=== PATIENT | female | born 1950 | race Two or more races ===

== ENCOUNTER 2024-06-26 11:00 | Emergency (ER) | payer MEDICARE, MEDICAID ==
[~2024-06-26] VITALS: Ht 165.1 cm; Wt 72.0 kg
[2024-06-26 12:26] LABS: Basophils # (auto) 0.1 10 ^3/uL (0-0.2); Basophils % (auto) 0.9 % (0.0-2.0); Eosinophils # (auto) 0.1 10 ^3/uL (0-0.8); Eosinophils % (auto) 0.9 % (0.0-7.0); Hematocrit 41.2 % (36.0-46.0); Hemoglobin 13.4 g/dL (12.2-16.2); Lymphocytes # (auto) 1.6 10 ^3/uL (0.4-5.4); Lymphocytes % (auto) 15.5 % (10.0-50.0); Mean Corpuscular Hemoglobin 30.2 pg (28.0-32.0); Mean Corpuscular Hgb Conc. 32.6 g/dL (32.0-36.0); Mean Corpuscular Volume 92.5 fL (80.0-100.0); Monocytes # (auto) 0.5 10 ^3/uL (0-1.3); Monocytes % (auto) 4.7 % (0.0-12.0); Neutrophils # (auto) 8.2 10 ^3/uL (1.6-8.6); Nucleated Red Blood Cells % 0.1 %; Platelet Count (auto) 364 10^3/uL (140-450); Red Blood Cells 4.45 10^6/uL (4.0-5.20); Red Cell Distribution Width 14.4 % (11.8-14.3); White Blood Cell 10.5 10^3/uL (4.4-10.8)
[2024-06-26 12:42] LABS: Albumin 3.9 g/dL (3.2-4.8); Alkaline Phosphatase 94 U/L (46-116); Anion Gap 10 (5-15); Aspartate Aminotransferase 18 U/L (13-40); BUN/Creatinine Ratio 18.5 (10.0-20.0); Bilirubin, Total 0.4 mg/dL (0.2-1.0); Calcium 9.9 mg/dL (8.7-10.4); Carbon Dioxide 23 mmol/L (20-31); Glucose 79 mg/dL (74-106); Sodium 145 mmol/L (136-145); Total Protein 6.8 g/dL (5.7-8.2)
[2024-06-26 12:47] LABS: Alanine Aminotransferase < 9 U/L (7-40); Blood Urea Nitrogen 23 mg/dL (9-23); Chloride 112 mmol/L (98-107)
--- NOTE | 2024-06-26 12:55 | DVH ---
EXAM: XY CHEST PORTABLE Indication: Pain Technique: Single frontal view of the chest was obtained Comparison: None FINDINGS: Lines and Tubes: None Lungs: No focal consolidation. Pleura: No effusion. No pneumothorax. Cardiomediastinal contours: Unremarkable Bones: No acute osseous abnormality. IMPRESSION: No acute cardiopulmonary disease.
--- NOTE | 2024-06-26 17:29 | ED.PDOC ---
History of Present Illness HPI Comments 73-year-old female brought in by EMS from [facility] for evaluation of reported chest pain. Per EMS, facility staff stated to them the patient had complained of chest pain. On arrival to the ER, the patient states she has not had chest pain. She denies shortness of breath, nausea, vomiting or other symptoms aside from lower back pain. Patient states her lower back pain started due to positioning in the gurney. No other symptoms are reported. Chief Complaint: Medical Clearance Time Seen by MD: 11:49 Allergies: Coded Allergies: NO KNOWN ALLERGIES (Unverified , 06/26/24) Mode of Arrival: EMS Past Medical History PAST MEDICAL HISTORY: CVA, Dementia, HTN Surgical History: Unknown [employer] History: Unknown Family History Family History: Unknown Social History Smoker: Non-Smoker Alcohol: Denies ETOH Use Drugs: Denies Drug Use Lives In: Prison All Other Systems: Reviewed and Negative (Comprehensive systems review obtained and negative except for what is stated in the HPI.) Physical Exam General Appearance: No Apparent Distress HEENT: PERRL/EOMI Neck: Full Range of Motion, Normal Inspection Respiratory: Chest Non-Tender, Lungs Clear, No Accessory Muscle Use, No Respiratory Distress, Normal Breath Sounds Cardiovascular: No Edema, No JVD, Regular Rate/Rhythm Breast Exam: Deferred Gastrointestinal: Non Tender, Soft Genitalia: Deferred Pelvic: Deferred Rectal: Deferred Extremities: Normal inspection, Normal range of motion, Non-tender, No pedal edema, Other (No midline or paraspinal back tenderness to palpation) Neurologic: Alert (Oriented times 1 (baseline per EMS report)), Normal Affect, Normal Mood, Other Cerebellar Function: NOT DONE Reflexes: NOT DONE Skin: Dry, Normal Color, Warm Lymphatic: NOT DONE Was a procedure done? Was a procedure done?: No EKG EKG : Comments Sinus rhythm, rate 79, normal intervals, normal axis, normal QRS, nonspecific T changes. Differential Dx Considerations may include: ACS, CT, chest wall pain, angina, GI etiology, infection such as bronchitis or pneumonia, among others X-Ray, Labs, Meds, VS Vital Signs Date Time Temp Pulse Resp B/P (MAP) Pulse Ox O2 Delivery O2 Flow Rate FiO2 06/26/24 20:55 98.0 98 16 156/74 (101) 97 98.0 06/26/24 20:46 188/97 06/26/24 20:22 74 17 97 Room Air* 0 21 06/26/24 20:02 184/103 06/26/24 19:30 98.0 74 13 180/103 (128) 97 98.0 06/26/24 19:06 98.3 76 14 174/72 (106) 95 98.3 06/26/24 17:32 79 06/26/24 12:23 98.1 78 16 165/90 (115) 95 98.1 06/26/24 12:23 78 16 95 Room Air 06/26/24 11:11 98.1 76 18 179/92 (121) 97 Lab Test 06/26/24 13:20 06/26/24 12:14 Range/Units Troponin I High Sensitivity 19 20 </=34 ng/L White Blood Count 10.5 4.4-10.8 10^3/uL Red Blood Count 4.45 4.0-5.20 10^6/uL Hemoglobin 13.4 12.2-16.2 g/dL Hematocrit 41.2 36.0-46.0 % Mean Corpuscular Volume 92.5 80.0-100.0 fL Mean Corpuscular Hemoglobin 30.2 28.0-32.0 pg Mean Corpuscular Hemoglobin Concent 32.6 32.0-36.0 g/dL Red Cell Distribution Width 14.4 H 11.8-14.3 % Platelet Count 364 140-450 10^3/uL Mean Platelet Volume 7.9 6.9-10.8 fL Neutrophils (%) (Auto) 78.0 37.0-80.0 % Lymphocytes (%) (Auto) 15.5 10.0-50.0 % Monocytes (%) (Auto) 4.7 0.0-12.0 % Eosinophils (%) (Auto) 0.9 0.0-7.0 % Basophils (%) (Auto) 0.9 0.0-2.0 % Neutrophils # (Auto) 8.2 1.6-8.6 10 ^3/uL Lymphocytes # (Auto) 1.6 0.4-5.4 10 ^3/uL Monocytes # (Auto) 0.5 0-1.3 10 ^3/uL Eosinophils # (Auto) 0.1 0-0.8 10 ^3/uL Basophils # (Auto) 0.1 0-0.2 10 ^3/uL Nucleated Red Blood Cells 0.1 % Sodium Level 145 136-145 mmol/L Potassium Level 4.0 3.5-5.1 mmol/L Chloride Level 112 H 98-107 mmol/L Carbon Dioxide Level 23 20-31 mmol/L Anion Gap 10 5-15 Blood Urea Nitrogen 23 9-23 mg/dL Creatinine 1.24 H 0.550-1.02 mg/dL Glomerular Filtration Rate Calc 46 >90 mL/min BUN/Creatinine Ratio 18.5 10.0-20.0 Serum Glucose 79 74-106 mg/dL Calcium Level 9.9 8.7-10.4 mg/dL Total Bilirubin 0.4 0.2-1.0 mg/dL Aspartate Amino Transferase (AST) 18 13-40 U/L Alanine Aminotransferase (ALT) < 9 7-40 U/L Alkaline Phosphatase 94 46-116 U/L B-Type Natriuretic Peptide 126.84 0-100 pg/mL Total Protein 6.8 5.7-8.2 g/dL Albumin 3.9 3.2-4.8 g/dL Current Medications Medications (Trade) Dose Ordered Sig/Bayron Route Start Time Stop Time Status Last Admin Hydralazine HCl (Apresoline Tablet) 10 mg ONCE ONCE PO 06/26/24 19:45 06/26/24 19:46 DC 06/26/24 20:02 Enalapril Maleate (Vasotec Tablet) 2.5 mg ONCE ONCE PO 06/26/24 20:45 06/26/24 20:46 DC 06/26/24 20:46 PROCEDURE(s): CXRP - CHEST PORTABLE REASON: med clearance ORDER NUMBER(s): [id number], ACCESSION NUMBER(s): [id number] EXAM: XY CHEST PORTABLE Indication: Pain Technique: Single frontal view of the chest was obtained Comparison: None FINDINGS: Lines and Tubes: None Lungs: No focal consolidation. Pleura: No effusion. No pneumothorax. Cardiomediastinal contours: Unremarkable Bones: No acute osseous abnormality. IMPRESSION: No acute cardiopulmonary disease. X-Ray, Labs, Meds, VS Comment 73-year-old female with a history of dementia brought in by EMS from [facility] [place] [facility] for evaluation of reported chest pain. On arrival to the ED, the patient denies any chest pain, shortness a breath or other symptoms aside from low back pain from lying on the gurney. Vitals remarkable for BP 179/92 Exam unremarkable Rhythm strip independently interpreted by me: Sinus rhythm, rate 79, no ectopy. Chest x-ray unremarkable CBC, metabolic panel, BNP and 2 serial troponins unremarkable for any abnormality of acute significance Patient treated with the following in the ED: Tylenol 650 mg p.o., hydralazine 10 mg p.o., Vasotec 2.5 mg p.o. Time of 1ST Reevaluation: 17:28 Reevaluation 1ST: Improved Patient Education/Counseling: Other (pt has dementia) Family Education/Counseling: No Family Present Additional Information -Reviewed patient's previous visit(s): - The following tests were ordered, and results were reviewed by me: trop x2, cbc, cmp, bnp, chest x-ray, ekg x1, - Additional information was gathered from interviewing the following independent Historian: patient - I reviewed and agreed with the following test results read by other provider: radiologist - I discussed treatments and results with medical personnel and: patient Comprehensive systems review obtained and negative except for what is stated in the HPI. Departure 1 Departure Time of Disposition: 17:30 Impression: Primary Impression: Well adult exam Additional Impression: Hypertension Qualified Codes: I10 - Essential (primary) hypertension Disposition: 03 [facility] Condition: Stable Additional Instructions: Your blood tests, including screening test for heart attack and heart failure, were unremarkable. Your chest x-ray was normal. Your EKG was unremarkable. Follow-up with your primary doctor in 1-2 days. Discharged With: [employer] Critical Care Note Critical Care Time?: No Stability Stability form required: No Heart Score Heart Score: Heart Score Response (Comments) Value History Slightly Suspicious 0 EKG Repolarization Disturb 1 Age >65 2 Risk Factors 1 or 2 risk factors 1 Troponin Normal limit 0 Total 4 I personally scribed for ALFONZO GUNDERSON MD ([email or web address]) on 06/26/24 at 17:40. Electronically submitted by Lalo Rojas ([facility]). ALFONZO GUNDERSON MD Jun 26, 2024 17:29
[2024-06-26] MEDS: ACETAMINOPHEN 325 MG TAB PO ONE (17:30)
--- NOTE | 2024-06-26 18:39 | ECG ---
[facility] Test Date: 2024-06-26 Test Time: 17:32:09 Pat Name: JONES MARIE Department: ER Room: Gender: F Gis Technician: GERARDO : 1950 Requested By: ALFONZO LAY Order Number: [id number] Reading MD: Denis Shelton Measurements Intervals Orla Rate: 79 P: 43 WA: 138 QRS: 41 QRSD: 86 T: 112 QT: 393 QTc: 451 Interpretive Statements Sinus rhythm Consider anterior infarct Nonspecific T abnormalities, lateral leads Electronically Signed On 06-28-2024 19:12:32 PDT by Denis Shelton Please click the below link to view image of tracing.
[2024-06-26] MEDS: hydrALAZINE HCL 10 MG TAB PO ONE (20:02)
[2024-06-26 20:22] VITALS: PULSE 74; RESP 17; O2SAT 97
[2024-06-26] MEDS: ENALAPRIL MALEATE 2.5 MG TAB PO ONE (20:46)
[2024-06-26 20:55] VITALS: BP 156/74; PULSE 98; RESP 16; TEMP 98; O2SAT 97
== END 2024-06-26 21:10 | disposition home or self-care (01) ==
LOC: EDBD 11:00 → ER 11:00
DX: I10 Essential (primary) hypertension (principal); F03.90 Unspecified dementia, unspecified severity, without behavioral disturbance, psychotic disturbance, mood disturbance, and anxiety; R06.02 Shortness of breath; Z86.73 Personal history of transient ischemic attack (TIA), and cerebral infarction without residual deficits
CPT/HCPCS: 36415; 71045; 80053; 83880; 84484; 85025; 93005